=== PATIENT | female | born 1955 | race Caucasian/White ===

== ENCOUNTER → 2016-09-29 | Outpatient (CLI) | payer BC | END | disposition home or self-care (01) | LOC: GMAB 10:31 | PROVIDERS: ATTEND Family Medicine | DX: I10 Essential (primary) hypertension (principal) ==

== ENCOUNTER → 2016-10-05 | Outpatient (CLI) | payer BC ==
--- NOTE | 2016-10-05 11:45 | MRI ---
EXAM DESCRIPTION: Cervical Spine CLINICAL HISTORY: WELLNESS EXAM neck pain with numbness into the left hand. COMPARISON: None Available. TECHNIQUE: MRI of the cervical spine is performed according to our usual protocol. FINDINGS: Very minimal reversal of upper cervical spine lordosis centered at C3-4 is present with adequate spinal canal. The foramen magnum and craniocervical junction are within the limits of normal. No intradural or intramedullary abnormality is noted and no abnormal marrow signal or paraspinous mass is seen. C2-3: the disc is well hydrated. There is no loss of height. There is no bulging. The facets are unremarkable with no significant hypertrophy. There is no stenosis or impingement. C3-4: the disc is well hydrated. There is no loss of height. There is no bulging. The facets are unremarkable with no significant hypertrophy. There is no stenosis or impingement. C4-5: The disc contour is normal with minimal annular prominence with mild left and slightly greater right foraminal narrowing from uncinate process hypertrophy and mild facet disease. A lateralizing prominent abnormality to the left is not apparent C5-6: Normal disc contour with adequate canal and left lateral recess and foramen with mild narrowing of the right neural foramen from facet disease and uncinate process hypertrophy C6-7: the disc is well hydrated. There is no loss of height. There is no bulging. The facets are unremarkable with no significant hypertrophy. There is no stenosis or impingement. C7-T1: the disc is well hydrated. There is no loss of height. There is no bulging. The facets are unremarkable with no significant hypertrophy. There is no stenosis or impingement. IMPRESSION: 1. Slight reversal of normal lordosis centered at the C3-4 level without compromise of the spinal canal 2. Mild right-sided foraminal narrowing at C4-5 and C5-6 without significant left-sided stenosis or asymmetric disc radiation to explain left-sided hand numbness 3. Remainder the study is normal. Electronically signed by: Kingsley Figueroa MD 10/05/2016 11:44 AM CDT
== END | disposition home or self-care (01) ==
LOC: MRI 09:58
PROVIDERS: ATTEND Family Medicine
DX: M48.02 Spinal stenosis, cervical region (principal)

== ENCOUNTER → 2018-02-17 | Outpatient (CLI) | payer BC | LOC: GMAE 10:38 | PROVIDERS: ATTEND Family Medicine | DX: Z00.00 Encounter for general adult medical examination without abnormal findings (principal) ==

== ENCOUNTER → 2019-02-21 | Outpatient (CLI) | payer BC | LOC: GMAE 11:02 | PROVIDERS: ATTEND Family Medicine | DX: Z00.00 Encounter for general adult medical examination without abnormal findings (principal) ==

== ENCOUNTER 2019-03-20 21:37 | Emergency (ER) | payer BC ==
[2019-03-20 21:58] VITALS: TEMP 98.8; O2SAT 96
--- NOTE | 2019-03-20 22:27 | RAD ---
EXAM DESCRIPTION: Ankle,Right 2 Views CLINICAL HISTORY: 63 years Female twisted yesterday COMPARISON: None TECHNIQUE: Two images of the right ankle were obtained. FINDINGS: Periarticular soft tissue swelling present more pronounced laterally. Bone fragments medial malleolar region consistent with fractures of indeterminate age. No additional fracture seen. Small calcaneal spur. Mild bony demineralization. IMPRESSION: Bone fragments medial malleolar region consistent with fractures of indeterminate age. Lateral soft tissue swelling with no additional fracture seen. Electronically signed by: Alice Lovelace MD 03/20/2019 10:25 PM [facility]
--- NOTE | 2019-03-20 22:34 | RAD ---
EXAM DESCRIPTION: Tibia/Fibula,Right CLINICAL HISTORY: 63 years Female, twisted yesterday COMPARISON: None. FINDINGS: There is a linear lucency within the distal right fibular metaphysis on the lateral view compatible with an acute, nondisplaced fracture. No dislocation. A small plantar calcaneal spur is present. Degenerative osteophyte formation of the knee is noted. Ankle soft tissue swelling is present. IMPRESSION: Acute fracture of the distal right fibular metaphysis. Electronically signed by: Maxwell Best MD 03/20/2019 10:33 PM [facility]
--- NOTE | 2019-03-20 22:46 | ED.PDOC ---
History of Present Illness - General Chief Complaint: Lower Extremity Injury Stated Complaint: twisted right ankle yesterday Time Seen by Provider: 03/20/19 21:47 Source: patient Exam Limitations: no limitations - History of Present Illness Initial Comments: the patient is a 63-year-old female presenting to emergency room secondary to pain in the right ankle. Apparently the patient twisted it yesterday while climbing onto a trailer. She reports that she felt a pop. She has apparently injured this ankle before in the past. She is neurovascularly intact. There is some diffuse swelling. The injury is nowmore than 24 hours old. No other injuries. Timing/Duration: 24 hours Severity: moderate Improving Factors: immobilization Worsening Factors: movement Associated Symptoms: denies symptoms Allergies/Adverse Reactions: Allergies Iodine Allergy (Verified 03/20/19 21:58) Latex Allergy (Verified 03/20/19 21:58) Penicillin G Allergy (Verified 03/20/19 21:58) Home Medications: Ambulatory Orders Tramadol HCl 50 mg PO Q8HR PRN #20 tab 03/20/19 Review of Systems - Review of Systems Constitutional: States: no symptoms reported EENTM: States: no symptoms reported Respiratory: States: no symptoms reported Cardiology: States: no symptoms reported Gastrointestinal/Abdominal: States: no symptoms reported Genitourinary: States: no symptoms reported Musculoskeletal: States: see HPI Skin: States: no symptoms reported Neurological: States: no symptoms reported Endocrine: States: no symptoms reported All other Systems: No Change from Baseline Past Medical History (General) - Patient Medical History Hx Seizures: No Hx Stroke: No Hx Dementia: No Hx Asthma: No Hx of COPD: No Hx Cardiac Disorders: No Hx Congestive Heart Failure: No Hx Pacemaker: No Hx Hypertension: Yes Hx Thyroid Disease: No Hx Diabetes: Yes Hx Gastroesophageal Reflux: Yes Hx Renal Disease: No Hx Cancer: No Hx of HIV: No Hx Hepatitis C: No Hx MRSA: No Surgical History: cholecystectomy, Hysterectomy - Vaccination History Hx Tetanus, Diphtheria Vaccination: No Hx Influenza Vaccination: No Hx Pneumococcal Vaccination: Yes - Social History Hx Alcohol Use: Yes - occRita campos Family Medical History - Family History Mother Family History: Unknown Physical Exam - Physical Exam General Appearance: Alert, Comfortable, No apparent distress Eye Exam: bilateral normal Ears, Nose, Throat: hearing grossly normal, normal pharynx Neck: full range of motion, supple Respiratory: lungs clear, normal breath sounds, no respiratory distress, no accessory muscle use Cardiovascular/Chest: normal peripheral pulses, no edema Peripheral Pulses: dorsalis pedis,right: 2+, dorsalis pedis,left: 2+ Gastrointestinal/Abdominal: other - obese Rectal Exam: deferred Extremity: normal range of motion, no calf tenderness, normal capillary refill, swelling, other - see history of present illness. Passive and active range of motion or within normal limits. No crepitus. No gross deformity other than generalized swelling. 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 She definitely has a nondisplaced distal fibular fracture. It is possible she may have a small chip fracture at the tip of the medial malleolus as well. This however may be old. The patient is going to be placed in a walking boot, to be nonweightbearing by using crutches. She needs to follow up with orthopedics in the next few days for repeat evaluation. She will be written for some pain medications for as needed use. ER warnings were given. andreas [email or web address] [id number] - Results/Orders Results/Orders: x-rays of the right ankle and tib-fib show a distal metaphyseal fracture of the fibula that is largely nondisplaced and a small fracture fragments of unknown timing at the tip of the medial malleolus. Departure - Departure Clinical Impression: Fracture of distal fibula Qualifiers: Encounter type: initial encounter Fracture type: closed Fracture morphology: unspecified fracture morphology Laterality: right Qualified Code(s): S82.831A - Other fracture of upper and lower end of right fibula, initial encounter for closed fracture Disposition: Discharge to Home or Self Care Condition: Fair Departure Forms: ED Discharge - Pt. Copy, Patient Portal Self Enrollment Instructions: Fibula Fracture (DC) Diet: regular diet Activity: no pushing/pulling with affected limb Referrals: GINNY BROWN MD [Primary Care Provider] - 1-2 Weeks Prescriptions: Tramadol HCl 50 mg PO Q8HR PRN #20 tab PRN Reason: Moderate Pain Home Medications: Ambulatory Orders Tramadol HCl 50 mg PO Q8HR PRN #20 tab 03/20/19 Additional Instructions: the patient is a 63-year-old female presenting with what is actually a right ankle fracture. She definitely has a nondisplaced distal fibular fracture. It is possible she may have a small chip fracture at the tip of the medial malleolus as well. This however may be old. The patient is going to be placed in a walking boot, to be nonweightbearing by using crutches. She needs to follow up with orthopedics in the next few days for repeat evaluation. She will be written for some pain medications for as needed use. ER warnings were given.
[2019-03-20 23:28] VITALS: BP 130/78
== END 2019-03-20 23:28 | disposition home or self-care (01) ==
LOC: ER 21:37
DX: S82.831A Other fracture of upper and lower end of right fibula, initial encounter for closed fracture (principal); S82.51XA Displaced fracture of medial malleolus of right tibia, initial encounter for closed fracture; K21.9 Gastro-esophageal reflux disease without esophagitis; E11.9 Type 2 diabetes mellitus without complications; I10 Essential (primary) hypertension; Z91.041 Radiographic dye allergy status; Z91.040 Latex allergy status; Z88.0 Allergy status to penicillin; X50.9XXA Other and unspecified overexertion or strenuous movements or postures, initial encounter; Y93.89 Activity, other specified; Y92.89 Other specified places as the place of occurrence of the external cause

== ENCOUNTER → 2019-03-23 | Outpatient (CLI) | payer BC ==
--- NOTE | 2019-03-23 13:36 | RAD ---
EXAM DESCRIPTION: Ankle,Right 3 Views CLINICAL HISTORY: 63 years Female, PAIN IN RIGHT ANKLE AND JOINTS OF RIGHT FOOT COMPARISON: Right ankle radiographs 04/07/2019. TECHNIQUE: 4 view radiograph of the right ankle. IMPRESSION: Acute oblique fracture through the distal fibula extending inferomedially into the lateral aspect tibiotalar joint space. There is 2 to 3 mm posterior lateral displacement of the distal fracture fragment. No significant sclerosis or surrounding callus formation about the fracture site to suggest healing process at this time. Recent fracture line remains clearly visible. Ankle mortise remains symmetric. Small tibiotalar joint effusion. Intact talar dome. Small calcaneal enthesophytes at the plantar fascia and Achilles tendon insertion. Mild soft tissue swelling about the ankle. Electronically signed by: Jeremie Altamirano MD 03/23/2019 1:35 PM [facility]
== END ==
LOC: RAD 08:12
PROVIDERS: ATTEND Orthopaedic Surgery
DX: S82.831A Other fracture of upper and lower end of right fibula, initial encounter for closed fracture (principal); M77.31 Calcaneal spur, right foot

== ENCOUNTER → 2019-04-06 | Outpatient (CLI) | payer BC ==
--- NOTE | 2019-04-06 13:02 | RAD ---
Study: Three views of the Right Ankle. Indication: CLOSED FRACTURE OF DISTAL FIBULA Comparison: March 23, 2019 Impression: Distal fibular fracture redemonstrated stable alignment. Early healing noted with indistinctness of the fracture margins. The fracture is incompletely united at this time. No new fracture identified. Stable additional stable findings as on the prior. Electronically signed by: Luisito oCe MD 04/06/2019 1:00 PM [facility]
== END ==
LOC: RAD 08:02
PROVIDERS: ATTEND Orthopaedic Surgery
DX: S89 Other and unspecified injuries of lower leg (principal)

== ENCOUNTER → 2019-05-08 | Outpatient (CLI) | payer BC ==
--- NOTE | 2019-05-08 15:17 | RAD ---
EXAM: Ankle,Right 3 Views CLINICAL HISTORY: CLOSED FRACTURE OF DISTAL FIBULA RIGHT. TECHNIQUE: AP, lateral and oblique images. COMPARISON STUDY: Right ankle x-rays from April 06, 2019 and March 23, 2019 FINDINGS: The oblique oriented fractures through the right distal fibula shows ongoing healing with increasing new bone formation. The fracture line is more indistinct there remains lucency at the proximal aspect. There is no new fracture. The ankle is in alignment. The plantar heel spur is unchanged. IMPRESSION: Continued healing of the right distal fibular fracture. Electronically signed by: Eamon Quintanilla MD 05/08/2019 3:15 PM [facility]
== END ==
LOC: RAD 08:53
PROVIDERS: ATTEND Orthopaedic Surgery
DX: S89.391D Other physeal fracture of lower end of right fibula, subsequent encounter for fracture with routine healing (principal)

== ENCOUNTER → 2020-03-27 | Outpatient (CLI) | payer BC, MEDICARE | LOC: GMAE 14:14 | PROVIDERS: ATTEND Family Medicine | DX: Z00.00 Encounter for general adult medical examination without abnormal findings (principal) ==